=== PATIENT | female | born 1980 | race Caucasian/White ===

== ENCOUNTER 2018-05-26 16:44 | Observation (INO) ==
[2018-05-26] MEDS ORDERED: Isovue-370 500 ML INFUS..BTL IV ONE (17:02)
[2018-05-26] MEDS ORDERED: methylPREDNISolone 125 MG/2 ML VIAL IVP ONE (17:04)
[2018-05-26] MEDS ORDERED: 0.9 % Sodium Chloride 1,000 ML IVC ONE (17:06)
--- NOTE | 2018-05-26 17:07 | Emergency Department Note ---
Disposition Clinical Impression: Chest pain Disposition: Still a Patient Referrals: NONE,PCP [Primary Care Provider] - Forms: ED Satisfaction Letter General Adult HPI - General Chief complaint: ED Shortness of Breath/Dyspnea Stated complaint: WILBER, chest pain Time Seen by Provider: 05/26/18 16:52 Source: patient, family Limitations: no limitations Nursing Notes Reviewed: Yes Vital Signs Reviewed: Yes - History of Present Illness HPI Narrative: 37yo female presents to [facility] c/o SOB and bilateral pleuritc chest pain for 2 days. Patient states pain is sharp, pleuritic, under bilateral ribs, she states it started intermittently, but is constant today. Patient states it feels like her previous 2 PE's. 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 Patient states she has been off her blood thinners (xarelto) for 3 months. Patient has hx of IVC filter, asthma. Onset (ago): day(s) Pain Scale: 8 Worsens with: other (breathing) Treatments Prior to Arrival: none - Related Data Allergies Allergy/AdvReac Type Severity Reaction Status Date / Time aztreonam [From Azactam] Allergy Hives Verified 05/26/18 16:48 droperidol Allergy Anaphylaxis Verified 05/26/18 16:48 Iodinated Contrast- Oral and Allergy Hives Verified 05/26/18 16:48 IV Dye ketorolac [From Toradol] Allergy Difficulty Verified 05/26/18 16:48 Breathing metoclopramide [From Reglan] Allergy Anaphylaxis Verified 05/26/18 16:48 ondansetron [From Zofran] Allergy Hives Verified 05/26/18 16:48 Penicillins [PCN] Allergy Hives Verified 05/26/18 16:48 prochlorperazine Allergy Anaphylaxis Verified 05/26/18 16:48 [From Compazine] Sulfa (Sulfonamide Allergy Hives Verified 05/26/18 16:48 Antibiotics) tramadol Allergy Rash Verified 05/26/18 16:48 Constitutional: Denies: fever, chills, weakness, weight change Eyes: Denies: eye pain, eye discharge, vision change ENT ED: Denies: ear pain, throat pain, dental pain, hearing loss, epistaxis, congestion, dysphagia Cardiovascular: Reports: chest pain (plueritic) Respiratory: Reports: dyspnea Gastrointestinal: Denies: abdominal pain, nausea, vomiting, diarrhea, constipation, hematemesis, melena, hematochezia Genitourinary: Denies: dysuria, frequency, hematuria, discharge Musculoskeletal: Denies: back pain, neck pain, arthralgia, myalgia Integumentary: Denies: rash, abrasion, lesions Neurological: Denies: headache, weakness, numbness, paresthesias, confusion, abnormal gait, vertigo Psychiatric: Denies: anxiety, depression, suicidal thoughts, homicidal thoughts , auditory hallucinations, visual hallucinations Hematological/Lymphatic: Reports: as per HPI, other (factor V, hx PEs) Past Medical History - Past Medical History Medical history: Reports: asthma, pulmonary embolus, other (factor V leiden) Surgical history: Reports: IVC filter Psychiatric history: Reports: no psych history CARGO MATE history: Reports: no CARGO MATE history - Social History Smoking Status: Never smoker Smokeless Tobacco Status: No Alcohol use: Reports: none Drug use: Reports: none Physical Exam - General Limitations: no limitations General appearance: alert, in no apparent distress Course Vital Signs Temperature 98 F 05/26/18 16:48 Pulse Rate 105 05/26/18 16:48 Respiratory Rate 15 05/26/18 16:48 Blood Pressure 121/71 05/26/18 16:48 O2 Sat by Pulse Oximetry 97 05/26/18 16:48 Temperature 98 F 05/26/18 16:51 Pulse Rate 113 05/26/18 18:25 Respiratory Rate 22 05/26/18 18:25 Blood Pressure 137/101 05/26/18 18:25 O2 Sat by Pulse Oximetry 97 05/26/18 18:25 Oxygen Delivery Oxygen Delivery Room Air Medical Decision Making - [facility] Narrative Medical decision making narrative: 1800 hrs.: Patient's troponins negative. She is a difficult IV stick and her other nurse tried and then she will not let her try him our she has been fairly uncooperative with staff telling people he can come back in the room and see her. She has been angry because we will I offered her oral pain medication but I do not think she needs IV narcotic pain medicine at this time. Were having the charge nurse place a ultrasound-guided IV if possible and then we like to do a CTA to rule out PE. 1821 hrs.: Charge nurse was able to place also guided IV in her right upper extremity. We will get her CTA going. - Lab Data Result diagrams: 05/26/18 17:15 Lab Results 05/26/18 Range/Units 17:15 Sodium 141 (136-145) mEq/L Potassium 4.2 (3.5-5.1) mEq/L Chloride 110 H (98-107) mEq/L Carbon Dioxide 20 L (23-29) mEq/L BUN 5 L (6-20) mg/dL Creatinine 0.81 (0.60-1.20) mg/dL Est GFR ( Amer) > 60 (> 60) Est GFR (Non-Af Amer) > 60 (> 60) BUN/Creatinine Ratio 6 (6-26) Glucose 106 H (70-105) mg/dL Calculated Osmolality 290 (280-300) Calcium 9.4 (8.6-10.3) mg/dL Troponin I < 0.03 (< 0.04) ng/mL Attestation Statement - Attestation Attestation: This documentation is done with the assistance of Dragon dictation. Despite efforts made to ensure accuracy, there may be inaccuracies in hide inspector and sorter or spelling and typographical errors. I examined this patient and my medical decision-making was reviewed with the Resident Physician. I agree with the documented findings, disposition and treatment plan as described except to the extent set forth below. Patient seen and evaluated by Dr. Mast and myself, agree with her evaluation and management plan, I supervised the care of the patient's stay. Patient's had a history of PE and she has been having sharp pain both sides is feels like a similar she said the past. She is been off her anticoagulants for some time due to not being before that. She denies any other pain no swelling in her legs or calf pain. Pain is nonreproducible. She did get an EKG CT of her chest. She says she is allergic IV contrast dye but she is premedicated she does fine Екатерина ordered that and will determine disposition after getting CTA.
[2018-05-26] MEDS ORDERED: Acetaminophen 325 MG TABLET PO ONE (17:35)
[2018-05-26 17:41] LABS: Troponin I < 0.03 ng/mL (< 0.04)
[2018-05-26 17:47] LABS: BUN/Creatinine Ratio 6 (6-26); Blood Urea Nitrogen 5 mg/dL (6-20); Calcium 9.4 mg/dL (8.6-10.3); Carbon Dioxide 20 mEq/L (23-29); Chloride 110 mEq/L (98-107); Glucose 106 mg/dL (70-105); Osmolality,Calculated 290 (280-300); Potassium 4.2 mEq/L (3.5-5.1); Sodium 141 mEq/L (136-145); eGFR For Non-African Americans > 60 (> 60)
--- NOTE | 2018-05-26 17:57 | Emergency Department Note ---
Disposition Forms: ED Satisfaction Letter General Adult HPI - General Chief complaint: ED Shortness of Breath/Dyspnea Stated complaint: WILBER, chest pain Time Seen by Provider: 05/26/18 16:52 Source: patient, family Limitations: no limitations Nursing Notes Reviewed: Yes Vital Signs Reviewed: Yes - History of Present Illness Pain Scale: 8 - Related Data Allergies Allergy/AdvReac Type Severity Reaction Status Date / Time aztreonam [From Azactam] Allergy Hives Verified 05/26/18 16:48 droperidol Allergy Anaphylaxis Verified 05/26/18 16:48 Iodinated Contrast- Oral and Allergy Hives Verified 05/26/18 16:48 IV Dye ketorolac [From Toradol] Allergy Difficulty Verified 05/26/18 16:48 Breathing metoclopramide [From Reglan] Allergy Anaphylaxis Verified 05/26/18 16:48 ondansetron [From Zofran] Allergy Hives Verified 05/26/18 16:48 Penicillins [PCN] Allergy Hives Verified 05/26/18 16:48 prochlorperazine Allergy Anaphylaxis Verified 05/26/18 16:48 [From Compazine] Sulfa (Sulfonamide Allergy Hives Verified 05/26/18 16:48 Antibiotics) tramadol Allergy Rash Verified 05/26/18 16:48 Past Medical History - Past Medical History Medical history: Reports: asthma, pulmonary embolus, other Psychiatric history: Reports: no psych history 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: 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 history - Social History Smoking Status: Never smoker Smokeless Tobacco Status: No Alcohol use: Reports: none Drug use: Reports: none Physical Exam - General Limitations: no limitations General appearance: alert, in no apparent distress Course Vital Signs Temperature 98 F 05/26/18 16:48 Pulse Rate 105 05/26/18 16:48 Respiratory Rate 15 05/26/18 16:48 Blood Pressure 121/71 05/26/18 16:48 O2 Sat by Pulse Oximetry 97 05/26/18 16:48 Temperature 98 F 05/26/18 16:51 Pulse Rate 99 05/26/18 16:57 Respiratory Rate 24 05/26/18 16:57 Blood Pressure 124/85 05/26/18 16:57 O2 Sat by Pulse Oximetry 97 05/26/18 16:57 Oxygen Delivery Oxygen Delivery Room Air Medical Decision Making - Lab Data Result diagrams: 05/26/18 17:15 Lab Results 05/26/18 Range/Units 17:15 Sodium 141 (136-145) mEq/L Potassium 4.2 (3.5-5.1) mEq/L Chloride 110 H (98-107) mEq/L Carbon Dioxide 20 L (23-29) mEq/L BUN 5 L (6-20) mg/dL Creatinine 0.81 (0.60-1.20) mg/dL Est GFR ( Amer) > 60 (> 60) Est GFR (Non-Af Amer) > 60 (> 60) BUN/Creatinine Ratio 6 (6-26) Glucose 106 H (70-105) mg/dL Calculated Osmolality 290 (280-300) Calcium 9.4 (8.6-10.3) mg/dL Troponin I < 0.03 (< 0.04) ng/mL Attestation Statement - Attestation Attestation: This documentation is done with the assistance of Dragon dictation. Despite efforts made to ensure accuracy, there may be inaccuracies in underwriting assistant or spelling and typographical errors. I examined this patient and my medical decision-making was reviewed with the Resident Physician. I agree with the documented findings, disposition and treatment plan as described except to the extent set forth below. Patient seen and evaluated on arrival with Dr. Mast and myself, I agree with her evaluation and management plan, supervised the care the patient's stay. Patient's had a history of PE in the past she has been off her anticoagulant and she feels like she could have a PE now. She denies any fevers or chills at this time. She has an allergy to IV dye but has been premedicated in the past without issue.
[2018-05-26] MEDS ORDERED: *HR* Promethazine 25 MG/ML VIAL IVP ONE ×3 (18:24→22:20)
[2018-05-26] MEDS ORDERED: *HR* HYDROmorphone (PF) 1 MG/ML SYRINGE IVP ONE (18:24)
[2018-05-26] MEDS ORDERED: *HR* FentaNYL (PF) 100 MCG/2 ML VIAL IVP ONE ×2 (19:03→20:05)
--- NOTE | 2018-05-26 19:03 | Emergency Department Note ---
Disposition Clinical Impression: Chest pain Qualifiers: Chest pain type: unspecified Qualified Code(s): R07.9 - Chest pain, unspecified Dyspnea Qualifiers: Dyspnea type: unspecified Qualified Code(s): R06.00 - Dyspnea, unspecified Disposition: Still a Patient Condition: Fair Referrals: NONE,PCP [Primary Care Provider] - Forms: ED Satisfaction Letter Time of Disposition: 19:05 General Adult HPI - General Chief complaint: ED Shortness of Breath/Dyspnea Stated complaint: WILBER, chest pain Time Seen by Provider: 05/26/18 16:52 Source: patient, family Limitations: no limitations Nursing Notes Reviewed: Yes Vital Signs Reviewed: Yes - History of Present Illness Pain Scale: 8 Worsens with: other (breathing) Treatments Prior to Arrival: none - Related Data Allergies Allergy/AdvReac Type Severity Reaction Status Date / Time aztreonam [From Azactam] Allergy Hives Verified 05/26/18 16:48 droperidol Allergy Anaphylaxis Verified 05/26/18 16:48 Iodinated Contrast- Oral and Allergy Hives Verified 05/26/18 16:48 IV Dye ketorolac [From Toradol] Allergy Difficulty Verified 05/26/18 16:48 Breathing metoclopramide [From Reglan] Allergy Anaphylaxis Verified 05/26/18 16:48 ondansetron [From Zofran] Allergy Hives Verified 05/26/18 16:48 Penicillins [PCN] Allergy Hives Verified 05/26/18 16:48 prochlorperazine Allergy Anaphylaxis Verified 05/26/18 16:48 [From Compazine] Sulfa (Sulfonamide Allergy Hives Verified 05/26/18 16:48 Antibiotics) tramadol Allergy Rash Verified 05/26/18 16:48 Constitutional: Denies: fever, chills, weakness, weight change Eyes: Denies: eye pain, eye discharge, vision change ENT ED: Denies: ear pain, throat pain, dental pain, hearing loss, epistaxis, congestion, dysphagia Cardiovascular: Reports: chest pain (plueritic) Respiratory: Reports: dyspnea Gastrointestinal: Denies: abdominal pain, nausea, vomiting, diarrhea, constipation, hematemesis, melena, hematochezia Genitourinary: Denies: dysuria, frequency, hematuria, discharge Musculoskeletal: Denies: back pain, neck pain, arthralgia, myalgia Integumentary: Denies: rash, abrasion, lesions Neurological: Denies: headache, weakness, numbness, paresthesias, confusion, abnormal gait, vertigo Psychiatric: Denies: anxiety, depression, suicidal thoughts, homicidal thoughts , auditory hallucinations, visual hallucinations Hematological/Lymphatic: Reports: as per HPI, other (factor V, hx PEs) Past Medical History - Past Medical History Medical history: Reports: asthma, pulmonary embolus, other (factor V leiden) Surgical history: Reports: IVC filter Psychiatric history: Reports: no psych history TRAUMA COUNSELLOR history: Reports: no TRAUMA COUNSELLOR history - Social History Smoking Status: Never smoker Smokeless Tobacco Status: No Alcohol use: Reports: none Drug use: Reports: none Physical Exam - General Limitations: no limitations General appearance: alert, in no apparent distress Course Course Narrative: Patient seen and examined. Please see other note for further details. Patient will be signed out to Dr. Stearns. We will need to follow up with the CTA of the chest. If she does have repeat pulmonary embolus, she will need anticoagulation set up again. Vital Signs Temperature 98 F 05/26/18 16:48 Pulse Rate 105 05/26/18 16:48 Respiratory Rate 15 05/26/18 16:48 Blood Pressure 121/71 05/26/18 16:48 O2 Sat by Pulse Oximetry 97 05/26/18 16:48 Temperature 98 F 05/26/18 16:51 Pulse Rate 113 05/26/18 18:25 Respiratory Rate 22 05/26/18 18:25 Blood Pressure 137/101 05/26/18 18:25 O2 Sat by Pulse Oximetry 97 05/26/18 18:25 Oxygen Delivery Oxygen Delivery Room Air Medical Decision Making - Medical Records Medical records reviewed: Yes I reviewed the patient's medical records. - Lab Data Lab results reviewed: Yes I reviewed the patient's lab results. Result diagrams: 05/26/18 17:15 Lab Results 05/26/18 Range/Units 17:15 Sodium 141 (136-145) mEq/L Potassium 4.2 (3.5-5.1) mEq/L Chloride 110 H (98-107) mEq/L Carbon Dioxide 20 L (23-29) mEq/L BUN 5 L (6-20) mg/dL Creatinine 0.81 (0.60-1.20) mg/dL Est GFR ( Amer) > 60 (> 60) Est GFR (Non-Af Amer) > 60 (> 60) BUN/Creatinine Ratio 6 (6-26) Glucose 106 H (70-105) mg/dL Calculated Osmolality 290 (280-300) Calcium 9.4 (8.6-10.3) mg/dL Troponin I < 0.03 (< 0.04) ng/mL - EKG Data EKG #1 EKG attestation: Yes I reviewed and interpreted this EKG. EKG results narrative: EKG done at 1655 shows sinus tachycardia with a rate of [address] elevation or depression. Normal axis.
--- NOTE | 2018-05-26 19:03 | Emergency Department Note ---
Disposition Clinical Impression: Chest pain Qualifiers: Chest pain type: unspecified Qualified Code(s): R07.9 - Chest pain, unspecified Dyspnea Qualifiers: Dyspnea type: unspecified Qualified Code(s): R06.00 - Dyspnea, unspecified Disposition: Admitted As Inpatient Condition: Fair Referrals: NONE,PCP [Primary Care Provider] - Forms: ED Satisfaction Letter Time of Disposition: 20:10 General Adult HPI - General Chief complaint: ED Shortness of Breath/Dyspnea Stated complaint: WILBER, chest pain Time Seen by Provider: 05/26/18 16:52 Source: patient, family Limitations: no limitations - History of Present Illness Pain Scale: 8 Worsens with: other (breathing) Treatments Prior to Arrival: none - Related Data Allergies Allergy/AdvReac Type Severity Reaction Status Date / Time aztreonam [From Azactam] Allergy Hives Verified 05/26/18 16:48 droperidol Allergy Anaphylaxis Verified 05/26/18 16:48 Iodinated Contrast- Oral and Allergy Hives Verified 05/26/18 16:48 IV Dye ketorolac [From Toradol] Allergy Difficulty Verified 05/26/18 16:48 Breathing metoclopramide [From Reglan] Allergy Anaphylaxis Verified 05/26/18 16:48 ondansetron [From Zofran] Allergy Hives Verified 05/26/18 16:48 Penicillins [PCN] Allergy Hives Verified 05/26/18 16:48 prochlorperazine Allergy Anaphylaxis Verified 05/26/18 16:48 [From Compazine] Sulfa (Sulfonamide Allergy Hives Verified 05/26/18 16:48 Antibiotics) tramadol Allergy Rash Verified 05/26/18 16:48 Constitutional: Denies: fever, chills, weakness, weight change Eyes: Denies: eye pain, eye discharge, vision change ENT ED: Denies: ear pain, throat pain, dental pain, hearing loss, epistaxis, congestion, dysphagia Cardiovascular: Reports: chest pain (plueritic) Respiratory: Reports: dyspnea Gastrointestinal: Denies: abdominal pain, nausea, vomiting, diarrhea, constipation, hematemesis, melena, hematochezia Genitourinary: Denies: dysuria, frequency, hematuria, discharge Musculoskeletal: Denies: back pain, neck pain, arthralgia, myalgia Integumentary: Denies: rash, abrasion, lesions Neurological: Denies: headache, weakness, numbness, paresthesias, confusion, abnormal gait, vertigo Psychiatric: Denies: anxiety, depression, suicidal thoughts, homicidal thoughts , auditory hallucinations, visual hallucinations Hematological/Lymphatic: Reports: as per HPI, other (factor V, hx PEs) Past Medical History - Past Medical History Medical history: Reports: asthma, pulmonary embolus, other (factor V leiden) Surgical history: Reports: IVC filter Psychiatric history: Reports: no psych history 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: 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 TEACHER history - Social History Smoking Status: Never smoker Smokeless Tobacco Status: No Alcohol use: Reports: none Drug use: Reports: none Physical Exam - General Limitations: no limitations General appearance: alert, in no apparent distress Course Vital Signs Temperature 98 F 05/26/18 16:48 Pulse Rate 105 05/26/18 16:48 Respiratory Rate 15 05/26/18 16:48 Blood Pressure 121/71 05/26/18 16:48 O2 Sat by Pulse Oximetry 97 05/26/18 16:48 Temperature 98 F 05/26/18 16:51 Pulse Rate 123 05/26/18 19:56 Respiratory Rate 22 05/26/18 19:56 Blood Pressure 166/102 05/26/18 19:56 O2 Sat by Pulse Oximetry 97 05/26/18 19:56 Oxygen Delivery Oxygen Delivery Room Air Medical Decision Making - Medical Records Medical records reviewed: Yes I reviewed the patient's medical records. - Lab Data Lab results reviewed: Yes I reviewed the patient's lab results. Result diagrams: 05/26/18 17:15 Lab Results 05/26/18 Range/Units 17:15 Sodium 141 (136-145) mEq/L Potassium 4.2 (3.5-5.1) mEq/L Chloride 110 H (98-107) mEq/L Carbon Dioxide 20 L (23-29) mEq/L BUN 5 L (6-20) mg/dL Creatinine 0.81 (0.60-1.20) mg/dL Est GFR ( Amer) > 60 (> 60) Est GFR (Non-Af Amer) > 60 (> 60) BUN/Creatinine Ratio 6 (6-26) Glucose 106 H (70-105) mg/dL Calculated Osmolality 290 (280-300) Calcium 9.4 (8.6-10.3) mg/dL Troponin I < 0.03 (< 0.04) ng/mL - Radiology Data Radiology results reviewed: Yes I reviewed the patient's radiology results. - EKG Data EKG #1 EKG attestation: Yes I reviewed and interpreted this EKG. EKG results narrative: Sinus tachycardia rate 105 ME 139 QRS 93 QT/QTC 346/407. No acute ST segment elevation Attestation Statement - Attestation Attestation: Care assumed from Dr. Tse at 19:00 pending CTA chest. Patient complains of chest discomfort and nausea. She requested additional medications. CTA pending at the time of sign out. Metabolic profile, trop and EKG results reviewed by me 20:06: The patient continues to complain of discomfort. She is tearful appearing. 2 separate doses of opiate analgesics ordered. She refused the dose of Nubain and requested a repeat dose of the fentanyl. She remains tachycardic. CTA results reviewed by me. The patient has findings of bronchial thickening versus pulmonary edema. Given that she continues to be symptomatic and tachycardic I have requested she be admitted to the medicine service. 20:12: ECG repeated shows sinus tachycardia rate 1:15 ME 170 QRS 108 QT/QTC 348 /416. No acute ST segment elevation. Study compared to previous ECG obtained several hours ago. Hospitalist agreeable to admit. The patient continues to ask for pain medication stating "can't they keep me comfortable?"
[2018-05-26] MEDS ORDERED: *HR* Nalbuphine 10 MG/ML AMPUL IV ONE (20:00)
[2018-05-26 20:13] LABS: Basophils % 0.6 %; Eosinophils # 0.3 K/mcL (0.0-0.6); Eosinophils % 5.2 %; Hemoglobin 12.7 g/dL (11.5-15.4); Immature Granulocytes % 0.3 % (0-4); Lymphocytes # 1.5 K/mcL (0.6-4.6); Lymphocytes % 24.4 %; Mean Corpuscular HGB Conc 32.6 g/dL (31.6-35.5); Mean Corpuscular Hemoglobin 27.6 pg (28.0-33.3); Mean Corpuscular Volume 84.8 fL (83.0-100.0); Mean Platelet Volume 10.8 fL (9.4-12.4); Monocytes # 0.4 K/mcL (0.0-1.3); Neutrophils # 3.9 K/mcL (1.6-8.9); Platelet Count 276 K/mcL (140-400); Red Cell Distribution Width 17.3 % (11.5-14.5); Segmented Neutrophils % 63.5 %
[2018-05-26] MEDS ORDERED: Acetaminophen 325 MG TABLET PO PRN (20:39)
[2018-05-26] MEDS ORDERED: *HR* HYDROcodone/Acet 5/325 mg TABLET PO PRN (20:39)
[2018-05-26] MEDS ORDERED: Naloxone 0.4 MG/ML INJ IVP PRN (20:39)
[2018-05-26] MEDS ORDERED: *HR* OxyCODONE Immed Rel 5 MG TABLET PO PRN (20:39)
--- NOTE | 2018-05-26 21:30 | Internal Med History&Physical ---
<Oswaldo Tucker P - Last Filed: 05/26/18 21:16> Date of Encounter: 05/26/18 Time of Encounter: 20:50 Internal Medicine - H&P: HPI Chief complaint: Chest pain Admitted From: Home Plans for Post Hospital Care: Home History of present illness: Ms. Garza is a 37 year old female presents for 2 day history of shortness of breath and chest pain getting progressively worse. She describes the pain as sharp in her bilateral lower ribs and radiating around to her upper back and shoulders. States the pain is worsened with deep breathing and denies any alleviating factors. Has history of PE's six months ago for which she was on Xarelto but stopped taking it around 3 months ago due to not having health insurance. Also states she has an IVC filter placed. States she has had only minimal pain relief with pain medications administered in ER. Past Med Surg Social Fam HX - Past Medical History Medical history: asthma, pulmonary embolus, other (factor V leiden) Additional medical history: factor 5, kidney stones Psychiatric history: no psych history - Past Surgical History Surgical History: IVC filter Additional surgical history: IVC filter - Social History Smoking Status: Never smoker Smokeless Tobacco Status: No Alcohol use: none Drug use: none Internal Medicine - H&P: Meds No Known Home Drugs 05/26/18 [History] 3 Allergy/AdvReac Type Severity Reaction Status Date / Time aztreonam [From Azactam] Allergy Hives Verified 05/26/18 16:48 droperidol Allergy Anaphylaxis Verified 05/26/18 16:48 Iodinated Contrast- Oral and Allergy Hives Verified 05/26/18 16:48 IV Dye ketorolac [From Toradol] Allergy Difficulty Verified 05/26/18 16:48 Breathing metoclopramide [From Reglan] Allergy Anaphylaxis Verified 05/26/18 16:48 ondansetron [From Zofran] Allergy Hives Verified 05/26/18 16:48 Penicillins [PCN] Allergy Hives Verified 05/26/18 16:48 prochlorperazine Allergy Anaphylaxis Verified 05/26/18 16:48 [From Compazine] Sulfa (Sulfonamide Allergy Hives Verified 05/26/18 16:48 Antibiotics) tramadol Allergy Rash Verified 05/26/18 16:48 All Systems PM: A 10-system review of systems was performed and is negative for pertinent findings except as documented above in the HPI. - Constitutional Vitals: Temp Pulse Resp BP Pulse Ox 98 F 123 21 128/77 97 05/26/18 16:51 05/26/18 19:56 05/26/18 20:56 05/26/18 20:56 05/26/18 19:56 Exam: General: Alert and oriented, tearful at beside but in no acute distress. Skin:Normal color, no rash, no lesions. HEENT:EOM, pupils equal, round and reactive. Cardiovascular:Normal S1 & S2, no rubs, murmurs or gallops. No JVD. Pulse regular. No reproducible pain on palpation. Lungs:Normal breath sounds, no wheezes or crackles. No labored breathing. Abdomen:Soft, non-tender, no rigidity. Extremities:No deformity, no edema or tenderness, no joint swelling or clubbing. Neurological:Normal cognition and motor skills. Pulses:Carotid and radial pulses normal +2. Rest of the physical exam is non contributory Internal Med - H&P Results - Labs CBC & Chem 7: 05/26/18 17:15 05/26/18 17:15 - Assessment and plan (1) Chest pain Current Visit: Yes Status: Acute Assessment and plan: Contninue cardiac monitoring. Serial troponins ordered. Repeat labs in a.m. Oral pain control. Qualifiers: Chest pain type: chest pain on breathing Qualified Code(s): R07.1 - Chest pain on breathing; R07.81 - Pleurodynia - Time Spent With Patient Total time spent is greater than 50% in coordination of care (as documented) at patient's floor/unit and/or counseling patient: <Harris Chávez - Last Filed: 05/26/18 22:39> Date of Encounter: 05/26/18 Internal Medicine - H&P: HPI History of present illness: Ms. Garza is a 37 year old female All Systems PM: A 10-system review of systems was performed and is negative for pertinent findings except as documented above in the HPI. - Constitutional Vitals: Temp Pulse Resp BP Pulse Ox 98 F 123 21 128/77 97 05/26/18 16:51 05/26/18 19:56 05/26/18 20:56 05/26/18 20:56 05/26/18 19:56 Internal Med - H&P Results - Labs CBC & Chem 7: 05/26/18 17:15 05/26/18 17:15 - Attending Attestation I have seen and examined the patient with Chris Tucker CNP and agree with his/ her assessment and plan. 37-year-old female with a reported history of PE, supposed to be on xarelto which she was not able to afford for the last 3 months due to insurance issues, also has IVC filter, presented to the ED with acute onset of bilateral rib cage pain. Pleuritic in nature. She was afebrile and hemodynamically stable except for HR ranging from 90-120. CTA did not reveal any PE or parenchymal abnormality except for questionable bronchial wall thickening that does not seem to correlate with her symptoms. Upon interviewing with the patient, patient presented with many red flags for drug seeking behavior including multiple, reported drug allergy, manipulative behavior for the providers to write orders for certain type of medications, poor IV access, and fixation into the medication regime rather than being interested in the workup of her presenting symptoms. She will be admitted overnight to rule out dangerous causes of chest pain including ACS given the extensive history as provided in her history but it appears that some of her symptoms may be related to opioid withdrawal as she also complains of vague muscle pain and N/V. Will treat her symptomatically and monitor her course clinically. Harris Chávez MD - Assessment and plan (1) Chest pain Current Visit: Yes Status: Acute Qualifiers: Chest pain type: chest pain on breathing Qualified Code(s): R07.1 - Chest pain on breathing; R07.81 - Pleurodynia - Time Spent With Patient Total time spent is greater than 50% in coordination of care (as documented) at patient's floor/unit and/or counseling patient:
[2018-05-27 00:28] LABS: Basophils % 0.3 %; Hematocrit 41.6 % (35.3-44.9); Hemoglobin 13.6 g/dL (11.5-15.4); Immature Granulocytes % 0.4 % (0-4); Lymphocytes # 0.6 K/mcL (0.6-4.6); Mean Corpuscular HGB Conc 32.7 g/dL (31.6-35.5); Mean Corpuscular Hemoglobin 27.9 pg (28.0-33.3); Mean Corpuscular Volume 85.4 fL (83.0-100.0); Mean Platelet Volume 9.4 fL (9.4-12.4); Monocytes % 0.3 %; Neutrophils # 7.3 K/mcL (1.6-8.9); Platelet Count 277 K/mcL (140-400); Red Blood Count 4.87 M/mcL (3.82-4.97); Red Cell Distribution Width 17.2 % (11.5-14.5)
[2018-05-27 00:48] LABS: BUN/Creatinine Ratio 6 (6-26); Blood Urea Nitrogen 5 mg/dL (6-20); Calcium 9.5 mg/dL (8.6-10.3); Carbon Dioxide 17 mEq/L (23-29); Chloride 109 mEq/L (98-107); Glucose 212 mg/dL (70-105); Osmolality,Calculated 298 (280-300); Potassium 3.6 mEq/L (3.5-5.1); Sodium 142 mEq/L (136-145); eGFR For Non-African Americans > 60 (> 60)
[2018-05-27] MEDS ORDERED: OXYCODONE Oral CONC 10 MG/0.5 ML ORAL.SYG SL PRN (01:14)
[2018-05-27] MEDS ORDERED: *HR* OxyCODONE/APAP 10/325 TABLET PO PRN (01:14)
[2018-05-27] MEDS ORDERED: *HR* HYDROcodone/Acet 5/325 mg TABLET PO PRN (08:31)
[2018-05-27] MEDS ORDERED: Lidocaine Viscous Oral Soln 15 ML SOLUTION MM PRN (09:17)
--- NOTE | 2018-05-27 09:39 | Internal Med Progress Note ---
Hospitalist Progress Note - Encounter Date of Encounter: 05/27/18 Time of Encounter: 09:31 - Subjective Interval History: Patient see bayron examined at bedside. I had an extensive discuaaion at bedside with the patient concerning her past health hx. She has hx of factor five lieden and has a filter in place. She stop taking Xarelto approx 6 mos ago . She states she is unable to take Coumadin or Eliquis, because they are not effective or therapeutic. She does not have a PCP, she has no insurance and is not able to afford Xarelto. Advised patient that director social service is not available today, we will have them see her in the AM. Patient requesting pain medication, we had a discussion concerning pain control. She has several allergies and feel that pain is more muscular skeletal. We will continue with Tylenol norco and lidocaine patch and swish for mouth. Patient asking for prescription upon discharge, [facility] report completed Had percocet prerscription filled on May 24 tabs. Advised patient she would receive [id number] norco for a few days, but if she leaves AMA she will not get anything. She verbalizes understanding - Exam Vitals: Temp Pulse Resp BP Pulse Ox 97.3 F L 99 17 140/86 93 05/27/18 07:00 05/27/18 07:00 05/27/18 07:00 05/27/18 07:00 05/27/18 07:00 - Assessment and Plan (1) Chest pain Current Visit: Yes Status: Acute Assessment and Plan: Tropinins are negative x3 EKG SR this am. Patient states she had cardiac cath and ablation in 1999 at [facility] We will obtain records We rayo check cardiac echo since she had cardiomegaly on CTA DVT Prophylaxis: Patient has hax of PE was on xarelto but has not taken for approx 6 mos. Has Filter. 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 - she is unable to take coumadin or Eliquise dt not effective - Time Spent with Patient Total time spent is greater than 50% in coordination of care (as documented) at patient's floor/unit and/or counseling patient: Internal Medicine: Result - Labs CBC & Chem 7: 05/27/18 00:05 05/27/18 00:05 Labs: Short CBC 05/27/18 Range/Units 00:05 WBC 8.0 (4.3-11.1) K/mcL Hgb 13.6 (11.5-15.4) g/dL Hct 41.6 (35.3-44.9) % Plt Count 277 (140-400) K/mcL Neutrophils # 7.3 (1.6-8.9) K/mcL BMP 05/27/18 00:05 Sodium 142 Potassium 3.6 Chloride 109 H Carbon Dioxide 17 L BUN 5 L Creatinine 0.87 Glucose 212 H Calcium 9.5 Cardiac Enzymes 05/27/18 Range/Units 00:02 Troponin I < 0.03 (< 0.04) ng/mL Consult Discharge Plan - Plan Referrals: NONE,PCP [Primary Care Provider] - (1) Chest pain Qualifiers: Chest pain type: chest pain on breathing Qualified Code(s): R07.1 - Chest pain on breathing; R07.81 - Pleurodynia
[2018-05-27] MEDS: Magic Mouthwash 10 ML UD Cup PO SCH ×2 (11:19→16:34)
[2018-05-27] MEDS ORDERED: *HR* Promethazine 25 MG/ML VIAL IVP PRN (11:48)
[2018-05-27] MEDS: *HR* OxyCODONE/APAP 10/325 TABLET PO PRN ×3 (14:02→22:06)
[2018-05-27] MEDS ORDERED: *HR* Rivaroxaban 10 MG TABLET PO SCH (17:00)
[2018-05-27 19:40] LABS: Bilirubin,Urine Negative (Negative); Blood,Urine Negative (Negative); Clarity,Urine Clear (Clear); Color,Urine Yellow (Yellow); Glucose,Urine (UA) Normal (Normal); Ketones,Urine Negative (Negative); Leukocyte Esterase,Urine Negative (Negative); Nitrite,Urine Negative (Negative); PH,Urine 6.5 pH Units (5.0-8.0); Protein,Urine Negative (Neg-Trace); Urobilinogen,Urine Normal (Normal)
[2018-05-27 20:08] LABS: Amphetamine Screen,Urine Negative ng/mL (Cutoff=1000); Barbiturate Screen,Urine Negative ng/mL (Cutoff=200); Benzodiazepines Screen,Urine Negative ng/mL (Cutoff=200); Cannabinoid Screen,Urine Negative ng/mL (Cutoff = 50); Cocaine Screen,Urine Negative ng/mL (Cutoff= 300); Opiate Screen,Urine Positive ng/mL (Cutoff=300); Phencyclidine Screen,Urine Negative ng/mL (Cutoff=25)
[2018-05-27] MEDS ORDERED: *HR* Promethazine 25 MG/ML VIAL IM ONE (21:03)
[2018-05-28] MEDS: *HR* OxyCODONE/APAP 10/325 TABLET PO PRN ×2 (02:11→06:15)
[2018-05-28 05:08] LABS: Basophils % 0.4 %; Eosinophils # 0.1 K/mcL (0.0-0.6); Eosinophils % 1.2 %; Hematocrit 36.5 % (35.3-44.9); Immature Granulocytes % 0.4 % (0-4); Lymphocytes # 2.7 K/mcL (0.6-4.6); Lymphocytes % 23.8 %; Mean Corpuscular HGB Conc 31.5 g/dL (31.6-35.5); Mean Corpuscular Hemoglobin 27.7 pg (28.0-33.3); Mean Platelet Volume 9.7 fL (9.4-12.4); Monocytes # 0.6 K/mcL (0.0-1.3); Monocytes % 5.2 %; Neutrophils # 7.8 K/mcL (1.6-8.9); Platelet Count 237 K/mcL (140-400); Red Blood Count 4.15 M/mcL (3.82-4.97); Red Cell Distribution Width 17.8 % (11.5-14.5)
[2018-05-28 05:11] LABS: Hemoglobin 11.5 g/dL (11.5-15.4)
[2018-05-28 05:14] LABS: INR 1.2
[2018-05-28 05:17] LABS: Activated Partial Thrombo Time 22.6 Seconds (26.0-36.0)
[2018-05-28 05:25] LABS: BUN/Creatinine Ratio 8 (6-26); Blood Urea Nitrogen 7 mg/dL (6-20); Calcium 8.6 mg/dL (8.6-10.3); Carbon Dioxide 25 mEq/L (23-29); Chloride 109 mEq/L (98-107); Glucose 102 mg/dL (70-105); Osmolality,Calculated 288 (280-300); Sodium 140 mEq/L (136-145); eGFR For Non-African Americans > 60 (> 60)
[2018-05-28 07:05] VITALS: BP 117/65
--- NOTE | 2018-05-28 07:36 | Discharge Summary ---
Orders not resulted at time of discharge: Pending orders 05/27/18 08:09 EKG [ECG 12 lead ECG] [ECG] Routine Date of Encounter: 05/28/18 Time of Encounter: 07:33 - Discharge Diagnosis (1) Chest pain Priority: Primary Status: Acute Qualifiers: Chest pain type: chest pain on breathing Qualified Code(s): R07.1 - Chest pain on breathing; R07.81 - Pleurodynia (2) Factor 5 Leiden mutation, heterozygous Priority: Secondary Status: Chronic (3) Hx of pulmonary embolus Priority: Secondary Status: Chronic Hospital course: Ms. Garza is a 37 year old female past medical hx of Factor five Leiden PE. Presented to the ED with pleuritic CP She has been off her blood thinner xarelto for 3 mos dt loss of insurance and she is unable to afford medication. She does have IVC filter. EKG with no ST T wave abnormalities, troponins negative x3 CTA negative for PE. During admission patient has been requesting narcotics Benadryl and phenergan I did review [facility] report which did show that she has filled a prescription on the for percocet from a physician in [place]. Which she states she received for her teeth. she has poor oral hygiene with broken and missing teeth as well as dental caries. I did obtain a echo, which was not completed dt patient having too much pain during procedure. I did obtain records from a previous hospital in [facility] where she states she had a cardiac ablation. No cardiac workup completed at this facility, however there was documentation concerning drug seeking behavior,with several ER visits for pain seeking narcotics and at one point had shane cath placed for pain control secondary to migraines. This was eventually discontinued dt infection and clots. She has had multiple ED visits to multiple states. I consulted neonatal social worker concerning Xarelto, however the patient has no insurance or form of income, no PCP. She is a resident of [place] - She will be given the Greg/Greg Xarelto assistance program paperwork, once she is established with PCP in her home state she can submit paperwork. Eseentially workup is negative for any cardiac or PE, advise patient to continue with lidoderm patches, tylenol for R rib pain. Also advised once established with PCP to have referal to dental clinic to have teeth pulled. Patient given prescription for lidocaine patch and magic mouthwash. Patient verbalized understanding - Time Spent with Patient Total time spent providing and/or coordinating discharge services: - Discharge Medications Prescriptions: Lidocaine Patch [Lidoderm 5% patch] 1 each TP DAILY #30 adh..patch Magic Mouthwash [Magic Mouthwash BLM] 10 ml PO QID PRN #240 ml PRN Reason: Pain Home Medications: Lidocaine Patch [Lidoderm 5% patch] 1 each TP DAILY #30 adh..patch 05/28/18 [Rx] Magic Mouthwash [Magic Mouthwash BLM] 10 ml PO QID PRN #240 ml 05/28/18 [Rx] Allergies/Adverse Reactions: 3 Allergy/AdvReac Type Severity Reaction Status Date / Time aztreonam [From Azactam] Allergy Hives Verified 05/26/18 16:48 droperidol Allergy Anaphylaxis Verified 05/26/18 16:48 Iodinated Contrast- Oral and Allergy Hives Verified 05/26/18 16:48 IV Dye ketorolac [From Toradol] Allergy Difficulty Verified 05/26/18 16:48 Breathing metoclopramide [From Reglan] Allergy Anaphylaxis Verified 05/26/18 16:48 ondansetron [From Zofran] Allergy Hives Verified 05/26/18 16:48 Penicillins [PCN] Allergy Hives Verified 05/26/18 16:48 prochlorperazine Allergy Anaphylaxis Verified 05/26/18 16:48 [From Compazine] Sulfa (Sulfonamide Allergy Hives Verified 05/26/18 16:48 Antibiotics) tramadol Allergy Rash Verified 05/26/18 16:48 Date of admission: 05/26/18 20:18 Primary care physician: PCP NONE Consults: 05/27/18 09:26 Consult to Pathology Secretary [CONS] Routine Reason for SW Consult: perrin No insurance- Xarelto Also referal to [facility] Discharging clinician: Anitha Salter Anticipated date of discharge: 05/28/18 - Constitutional Vitals: Temp Pulse Resp BP Pulse Ox 97.8 F 69 15 117/65 96 05/28/18 07:04 05/28/18 07:04 05/28/18 07:04 05/28/18 07:04 05/28/18 07:04 General appearance: Present: A&O X 3 Exam: see above - Head Head exam: Present: atraumatic, normocephalic - Eye Eye exam: Present: PERRL, conjuntiva pink, sclera anicteric Pupils: Present: PERRL - Neck Neck exam general surgery: Present: supple, trachea midline. Absent: lymphadenopathy - Respiratory Respiratory exam: Present: CTAB. Absent: accessory muscle use, rales, rhonchi, wheezes - Cardiovascular Cardiovascular exam: Present: RRR, +S1, +S2. Absent: diastolic murmur, gallop, rubs, systolic murmur - GI/Abdominal GI/Abdominal exam: Present: normal bowel sounds, soft, no peritoneal signs. Absent: distended, tenderness - Extremities Exam Extremities exam: Present: warm, radial pulses palpable and symmetrical. Absent : calf tenderness, cyanotic, pedal edema - Neurological Exam Neurological exam: Present: CN II-XII intact, oriented X3, no focal deficits. Absent: pronater drift, facial droop, speech deficit - Skin Skin exam: Present: dry, intact - Patient Status Disposition: Home, Self-Care Condition: Fair Functional capacity at discharge: independent ambulation Overall status at discharge: patient is back to baseline - Discharge Instructions Instructions: Chest Pain (DC) Follow Up With: NONE,PCP [Primary Care Provider] - - Diet and Activity Activity: resume usual activities as tolerated Diet: advance to your usual diet
[2018-05-28] MEDS: Magic Mouthwash 10 ML UD Cup PO SCH (08:26)
--- NOTE | 2018-05-28 16:17 | Electrocardiograph Report ---
[place] [address] Test Date: 2018-05-27 Pat Name: Pinky Garza Department: 113 Room: 3B14 Gender: F Manager Test: : 1980 Requested By: Anitha Salter Order Number: [id number] Reading MD: Priyanka Clark Measurements Intervals [place] Rate: 87 P: 50 ME: 159 QRS: 37 QRSD: 104 T: 17 QT: 367 QTc: 411 Interpretive Statements SINUS RHYTHM Electronically Signed On 05-28-2018 16:15:53 EDT by Priyanka Clark
--- NOTE | 2018-05-28 16:22 | Electrocardiograph Report ---
[address] [address] Test Date: 2018-05-26 Pat Name: Pinky Garza Department: 104 Room: 3B14 Gender: F [employer] Converter: MANDEEP : 1980 Requested By: Connie Mast Order Number: [id number] Reading MD: Priyanka Clark Measurements Intervals [place] Rate: 115 P: 77 MD: 170 QRS: 1 QRSD: 108 T: 15 QT: 348 QTc: 416 Interpretive Statements SINUS TACHYCARDIA Electronically Signed On 05-28-2018 16:20:39 EDT by Priyanka Clark
--- NOTE | 2018-05-29 17:43 | Electrocardiograph Report ---
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
== END 2018-05-28 11:54 | disposition home or self-care (01) ==
LOC: 3BNU 16:44 → EMEROO 16:44 → 3BNU 21:02
PROVIDERS: ADMIT Internal Medicine; ATTEND Internal Medicine